=== PATIENT | male | born 1950 ===

== ENCOUNTER 2020-11-26 13:04 | Emergency (ER) | payer OTHER ==
[~2020-11-26] VITALS: Ht 170.2 cm; Wt 97.5 kg
[2020-11-26] MEDS ORDERED: LANTUS SOL100 UNIT/1 (13:35)
[2020-11-26] MEDS ORDERED: HUMALOG100 UNIT/2 (13:35)
== END 2020-11-26 15:06 | disposition home or self-care (01) ==
LOC: ER
DX: B02.9 Zoster without complications (principal)